=== PATIENT | female | born 1980 | race Caucasian/White ===

== ENCOUNTER 2024-06-22 18:25 | Emergency (ER) | payer BC ==
[~2024-06-22] VITALS: Ht 162.6 cm; Wt 54.4 kg
[2024-06-22] MEDS ORDERED: SERT25TA PO (18:42)
[2024-06-22] MEDS ORDERED: TRAZ-182 PO (18:42)
[2024-06-22 18:59] LABS: BASOPHILS # (AUTO) 0.1 K/UL (0.0-0.2); BASOPHILS % (AUTO) 1.5 % (0.0-2.0); EOSINOPHILS # (AUTO) 0.3 K/uL (0.0-0.7); EOSINOPHILS % (AUTO) 3.6 % (0.0-7.0); HEMATOCRIT 37.4 % (31.2-41.9); HEMOGLOBIN 12.9 g/dL (10.9-14.3); LYMPHOCYTES # (AUTO) 3.2 K/uL (0.8-4.8); LYMPHOCYTES % (AUTO) 44.6 % (20.5-51.5); MEAN CORPUSCULAR HEMOGLOBIN 31.2 uug (24.7-32.8); MEAN CORPUSCULAR HGB CONC 35 g/dL (32.3-35.6); MEAN CORPUSCULAR VOLUME 90.6 fL (75.5-95.3); MONOCYTES # (AUTO) 0.4 K/uL (0.1-1.30); MONOCYTES % (AUTO) 6.2 % (0.0-11.0); NEUTROPHILS # (AUTO) 3.2 K/uL (1.8-8.9); NEUTROPHILS % (AUTO) 44.1 % (38.5-71.5); PLATELET COUNT (AUTO) 266 K/uL (179-408); RED BLOOD CELL COUNT(AUTO) 4.13 MIL/uL (3.63-4.92); RED CELL DISTRIBUTION WIDTH 12.5 % (12.3-17.7); WHITE BLOOD COUNT (AUTO) 7.2 K/uL (3.8-11.8)
[2024-06-22 19:09] LABS: DIFFERENTIAL COMMENT 1
[2024-06-22 19:22] LABS: ALBUMIN 3.6 g/dL (3.4-5.0); BILIRUBIN,TOTAL 0.2 mg/dL (0.2-1.0); CALCIUM 9.2 mg/dL (8.5-10.1); CREATININE 0.9 mg/dL (0.6-1.3); POTASSIUM 3.7 mmol/L (3.5-5.1)
[2024-06-22 19:42] LABS: BILIRUBIN,DIRECT 0.1 mg/dL (0.0-0.2)
[2024-06-22 19:49] LABS: *URINE HCG, QUAL NEGATIVE (NEGATIVE)
[2024-06-22 20:20] VITALS: BP 114/84; O2SAT 98
== END 2024-06-22 20:20 | disposition home or self-care (01) ==
LOC: ER 18:25
DX: D25.9 Leiomyoma of uterus, unspecified (principal); N93.9 Abnormal uterine and vaginal bleeding, unspecified; R53.83 Other fatigue; R10.2 Pelvic and perineal pain; F41.9 Anxiety disorder, unspecified; Z86.018 Personal history of other benign neoplasm; Z79.899 Other long term (current) drug therapy; Z79.890 Hormone replacement therapy
CPT/HCPCS: 36415; 84703; 85025; 85730; 86850; 86900; 86901; A4606; A4663